=== PATIENT | female | born 1935 | race Caucasian/White ===

== ENCOUNTER 2018-01-27 11:01 | Emergency (ER) | payer OTHER ==
[~2018-01-27] VITALS: Ht 162.6 cm; Wt 52.3 kg
[2018-01-27 12:06] LABS: BASOPHIL (%) 0.3 % (0-1); EOSINOPHIL (%) 0.1 % (0-5); HEMOGLOBIN 14.1 G/DL (11.9-15.5); IMMATURE GRANULOCYTE (%) 0.3 % (0.0-0.7); LYMPHOCYTE (%) 11.8 % (15-42); LYMPHOCYTE COUNT 0.8 K/uL (1.0-2.8); MCH 30.7 PG (29.0-34.0); MCHC 35.3 G/DL (30.0-36.0); MONOCYTE (%) 6.3 % (3-12); MONOCYTE COUNT 0.5 K/uL (0-0.8); NEUTROPHIL (%) 81.2 % (45-76); NEUTROPHIL COUNT 5.8 K/uL (1.8-6.4); PLATELET COUNT 304 K/uL (156-360); RBC DIS.WIDTH-CV 13.2 % (11.8-14.6); RBC DIS.WIDTH-SD 41.1 % (39-53); WHITE BLOOD COUNT 7.1 K/uL (4.1-10.2)
[2018-01-27 12:14] LABS: CHLORIDE 102 mEq/L (99-109); POTASSIUM 3.1 mEq/L (3.7-5.4); SODIUM 141 mEq/L (136-147)
[2018-01-27 12:16] LABS: GLUCOSE 110 mg/dL (70-99)
[2018-01-27 12:20] LABS: CREATININE 0.6 mg/dL (0.6-1.3); GFR ESTIMATE (CALCULATED) > 59 mL/min/; UREA NITROGEN (BUN) 10 mg/dL (9-23)
[2018-01-27 15:41] VITALS: BP 144/110
== END 2018-01-27 15:43 | disposition home or self-care (01) ==
LOC: EME 11:01
PROVIDERS: Emergency Medicine
DX: R53.1 Weakness (principal); E87.6 Hypokalemia; R42 Dizziness and giddiness; R63.4 Abnormal weight loss; Z68.1 Body mass index [BMI] 19.9 or less, adult; R29.6 Repeated falls; Z91.81 History of falling
CPT/HCPCS: 71045; 80048; 81003; 85025; 93005; 99281; 99285; J7030

== ENCOUNTER 2018-03-05 21:03 | Inpatient (IN) | payer OTHER ==
[~2018-03-05] VITALS: Ht 170.2 cm; Wt 56.6 kg
[~2018-03-05 21:03] MED LIST: CARAFATE1 GM PO; DECADRON4 M1 PO; KLOR-CON 1010 ME1 PO; NYSTATIN100000 UN1 PO; OMEPRAZOLE40 M1 PO; PRINIVIL20 MG PO; ZUPLENZ4 MG PO
[2018-03-06 13:23] VITALS: BP 132/81
[2018-03-06 22:01] VITALS: BP 149/87
[2018-03-06 23:00] VITALS: BP 126/79
[2018-03-07] VITALS (17 sets, daily range): BP systolic 91–153; BP diastolic 52–90
[2018-03-07] MEDS ORDERED: CARAFATE1 GM PO (11:21)
[2018-03-07] MEDS ORDERED: ZOFRAN4 MG PO (11:23)
[2018-03-07] MEDS ORDERED: CALCIUM + D SO1 EACH PO (11:24)
[2018-03-08 00:16] VITALS: BP 156/85
[2018-03-08 03:28] VITALS: BP 162/82
[2018-03-08 07:59] VITALS: BP 168/102
[2018-03-08 11:00] VITALS: BP 136/81
[2018-03-08 15:18] LABS: HEMATOCRIT 39.7 % (36.0-46.0); HEMOGLOBIN 13.7 G/DL (11.9-15.5); MCV 91.7 FL (83-99)
[2018-03-08 16:43] VITALS: BP 133/77
[2018-03-08 17:40] LABS: BASOPHIL (%) 0.2 % (0-1); BASOPHIL COUNT 0.1 K/uL (0-0.1); EOSINOPHIL (%) 0 % (0-5); HEMATOCRIT 40.6 % (36.0-46.0); HEMOGLOBIN 13.9 G/DL (11.9-15.5); IMMATURE GRANULOCYTE (%) 0.7 % (0.0-0.7); LYMPHOCYTE (%) 2.3 % (15-42); LYMPHOCYTE COUNT 0.6 K/uL (1.0-2.8); MCH 31.4 PG (29.0-34.0); MCHC 34.2 G/DL (30.0-36.0); MCV 91.6 FL (83-99); MONOCYTE (%) 2.8 % (3-12); MONOCYTE COUNT 0.7 K/uL (0-0.8); NEUTROPHIL COUNT 23.1 K/uL (1.8-6.4); PLATELET COUNT 241 K/uL (156-360); RBC DIS.WIDTH-CV 15.7 % (11.8-14.6); RBC DIS.WIDTH-SD 52.5 % (39-53); RED BLOOD COUNT 4.43 M/uL (3.80-5.20); WHITE BLOOD COUNT 24.5 K/uL (4.1-10.2)
[2018-03-08 18:05] LABS: ALBUMIN 3.5 G/DL (3.2-4.8); ALKALINE PHOSPHATASE 110 IU/L (3-129); ALT (GPT) 13 IU/L (3-49); AST (GOT) 15 IU/L (2-34); CHLORIDE 106 MEQ/L (99-109); CREATININE 0.6 MG/DL (0.6-1.3); GFR ESTIMATE (CALCULATED) > 59 mL/min/; GLUCOSE 244 mg/dL (70-99); SODIUM 136 MEQ/L (136-147); TOTAL BILIRUBIN 1.3 MG/DL (0.0-1.0); UREA NITROGEN (BUN) 29 mg/dL (9-23)
[2018-03-08 20:03] VITALS: BP 146/78
[2018-03-09] VITALS (7 sets, daily range): BP systolic 123–154; BP diastolic 65–91
[2018-03-09 06:01] LABS: BASOPHIL (%) 0.1 % (0-1); EOSINOPHIL (%) 0 % (0-5); HEMATOCRIT 36.7 % (36.0-46.0); HEMOGLOBIN 12.3 G/DL (11.9-15.5); IMMATURE GRANULOCYTE (%) 0.6 % (0.0-0.7); LYMPHOCYTE (%) 3.9 % (15-42); LYMPHOCYTE COUNT 0.6 K/uL (1.0-2.8); MCH 31.5 PG (29.0-34.0); MCHC 33.5 G/DL (30.0-36.0); MCV 94.1 FL (83-99); MONOCYTE (%) 1.7 % (3-12); MONOCYTE COUNT 0.3 K/uL (0-0.8); NEUTROPHIL (%) 93.7 % (45-76); NEUTROPHIL COUNT 15.1 K/uL (1.8-6.4); PLATELET COUNT 176 K/uL (156-360); RBC DIS.WIDTH-CV 15.9 % (11.8-14.6); RBC DIS.WIDTH-SD 54.8 % (39-53); WHITE BLOOD COUNT 16.1 K/uL (4.1-10.2)
[2018-03-09 06:22] LABS: CHLORIDE 110 MEQ/L (99-109); CREATININE 0.6 MG/DL (0.6-1.3); GFR ESTIMATE (CALCULATED) > 59 mL/min/; GLUCOSE 147 mg/dL (70-99); UREA NITROGEN (BUN) 25 mg/dL (9-23)
[2018-03-09 06:26] LABS: POTASSIUM 4.9 MEQ/L (3.7-5.4); SODIUM 143 MEQ/L (136-147)
[2018-03-09 16:09] LABS: APPEARANCE CLEAR ((CLEAR)); BILIRUBIN NEGATIVE; BLOOD NEGATIVE; COLOR YELLOW ((YELLOW)); GLUCOSE (STRIP) NEGATIVE; KETONES NEGATIVE; LEUKOCYTES NEGATIVE; NITRITE NEGATIVE; PROTEIN (STRIP) NEGATIVE; SPECIFIC GRAVITY 1.016 (1.000-1.030); UCUL ADDED? NO; UROBILINOGEN 0.2 MG/DL (0.2-1.0)
[2018-03-10 03:45] VITALS: BP 158/88
[2018-03-10 06:50] LABS: HEMATOCRIT 36.6 % (36.0-46.0); HEMOGLOBIN 12.3 G/DL (11.9-15.5); MCH 31.1 PG (29.0-34.0); MCHC 33.6 G/DL (30.0-36.0); MCV 92.7 FL (83-99); PLATELET COUNT 193 K/uL (156-360); RBC DIS.WIDTH-CV 15.5 % (11.8-14.6); RBC DIS.WIDTH-SD 52.9 % (39-53); RED BLOOD COUNT 3.95 M/uL (3.80-5.20); WHITE BLOOD COUNT 16.3 K/uL (4.1-10.2)
[2018-03-10 07:18] LABS: CHLORIDE 108 MEQ/L (99-109); CREATININE 0.6 MG/DL (0.6-1.3); GFR ESTIMATE (CALCULATED) > 59 mL/min/; GLUCOSE 143 mg/dL (70-99); POTASSIUM 3.6 MEQ/L (3.7-5.4); SODIUM 141 MEQ/L (136-147); UREA NITROGEN (BUN) 35 mg/dL (9-23)
[2018-03-10 07:30] VITALS: BP 139/81
[2018-03-10 11:29] VITALS: BP 137/84
[2018-03-10 15:28] VITALS: BP 143/77
[2018-03-10 19:17] VITALS: BP 137/75
[2018-03-10 23:14] VITALS: BP 156/80
[2018-03-11 03:36] VITALS: BP 160/84
[2018-03-11 06:44] LABS: BASOPHIL (%) 0.2 % (0-1); EOSINOPHIL (%) 0 % (0-5); HEMATOCRIT 40.7 % (36.0-46.0); HEMOGLOBIN 13.9 G/DL (11.9-15.5); IMMATURE GRANULOCYTE (%) 0.9 % (0.0-0.7); LYMPHOCYTE (%) 4.6 % (15-42); LYMPHOCYTE COUNT 0.8 K/uL (1.0-2.8); MCH 31.3 PG (29.0-34.0); MCHC 34.2 G/DL (30.0-36.0); MCV 91.7 FL (83-99); MONOCYTE (%) 4.6 % (3-12); MONOCYTE COUNT 0.8 K/uL (0-0.8); NEUTROPHIL (%) 89.7 % (45-76); NEUTROPHIL COUNT 15.6 K/uL (1.8-6.4); PLATELET COUNT 230 K/uL (156-360); RBC DIS.WIDTH-CV 15.5 % (11.8-14.6); RBC DIS.WIDTH-SD 52.1 % (39-53); RED BLOOD COUNT 4.44 M/uL (3.80-5.20); WHITE BLOOD COUNT 17.4 K/uL (4.1-10.2)
[2018-03-11 07:05] LABS: ALBUMIN 3.3 G/DL (3.2-4.8); ALKALINE PHOSPHATASE 93 IU/L (3-129); ALT (GPT) 16 IU/L (3-49); AST (GOT) 14 IU/L (2-34); CHLORIDE 108 MEQ/L (99-109); CREATININE 0.5 MG/DL (0.6-1.3); GFR ESTIMATE (CALCULATED) > 59 mL/min/; GLUCOSE 132 mg/dL (70-99); POTASSIUM 3.9 MEQ/L (3.7-5.4); SODIUM 140 MEQ/L (136-147); TOTAL PROTEIN 5.3 G/DL (6.4-8.3); UREA NITROGEN (BUN) 37 mg/dL (9-23)
[2018-03-11 07:07] LABS: TOTAL BILIRUBIN 0.7 MG/DL (0.0-1.0)
[2018-03-11 07:51] VITALS: BP 134/76
[2018-03-11 11:08] VITALS: BP 128/68
[2018-03-11 16:22] VITALS: BP 125/67
[2018-03-11 19:25] VITALS: BP 144/73
[2018-03-11 23:19] VITALS: BP 158/82
[2018-03-12 03:36] VITALS: BP 145/69
[2018-03-12 08:26] VITALS: BP 170/97
[2018-03-12] MEDS ORDERED: HYDROCODON-ACE1 EAC7 PO (08:28)
[2018-03-12] MEDS ORDERED: MEDROL DOSEPAK4 MG PO (08:28)
[2018-03-12 10:42] VITALS: BP 136/76
[2018-03-12] MEDS ORDERED: LOPRESSOR25 MG PO (10:51)
== END 2018-03-12 12:16 | DRG 25 ==
LOC: ENRESERV 21:03 → 4WEST 03-06 12:51 → 2SOUTH 03-06 12:51 → 3EAST 03-06 12:51 → 2SOUTH 03-06 15:07 → ENRESERVTM 03-06 18:59 → ENRESERV 03-06 18:59 → ENRESERVDT 03-06 18:59 → 4WEST 03-06 22:05 → ENRESERV 03-07 10:36 → 3EAST 03-07 13:07
PROVIDERS: Hospitalist; Internal Medicine; Neurological Surgery
DX: C71.6 Malignant neoplasm of cerebellum (principal); G93.5 Compression of brain; I97.3 Postprocedural hypertension; E87.2 Acidosis; R00.0 Tachycardia, unspecified; E87.6 Hypokalemia; K21.9 Gastro-esophageal reflux disease without esophagitis; Y83.8 Other surgical procedures as the cause of abnormal reaction of the patient, or of later complication, without mention of misadventure at the time of the procedure; Y92.238 Other place in hospital as the place of occurrence of the external cause; F03.90 Unspecified dementia, unspecified severity, without behavioral disturbance, psychotic disturbance, mood disturbance, and anxiety
CPT/HCPCS: 70450; 71045; 80048; 80053; 81003; 82308 90; 83605; 83735; 85014; 85018; 85025; 85027; 86850; 86900; 86901; 87641; 88307; 88341 TC; 88342 TC; 93005; 94760; 94799; C1713; J0131; J0330; J0690; J1100; J1170; J2710; J3010; J3480; J7030; J7120; J7643; J8540; Q0175

== ENCOUNTER 2018-03-26 14:36 | Inpatient (IN) | payer OTHER ==
[~2018-03-26] VITALS: Ht 167.6 cm; Wt 59.7 kg
[~2018-03-26 14:36] MED LIST changes: +CALCIUM + D SO1 EACH PO; +HYDROCODON-ACE1 EAC7 PO; -KLOR-CON 1010 ME1 PO; +KLOR-CON M2020 MEQ PO; +LOPRESSOR25 MG PO; +MEDROL DOSEPAK4 MG PO; +ZOFRAN4 MG PO
[2018-03-26 15:33] LABS: HEMATOCRIT 36.4 % (36.0-46.0); MCH 32.3 PG (29.0-34.0); MCHC 35.7 G/DL (30.0-36.0); MCV 90.3 FL (83-99); PLATELET COUNT 248 K/uL (156-360); RBC DIS.WIDTH-CV 13.9 % (11.8-14.6); RBC DIS.WIDTH-SD 46.3 % (39-53); RED BLOOD COUNT 4.03 M/uL (3.80-5.20); WHITE BLOOD COUNT 10.5 K/uL (4.1-10.2)
[2018-03-26 15:43] LABS: CHLORIDE 97 mEq/L (99-109); POTASSIUM 3.3 mEq/L (3.7-5.4); SODIUM 138 mEq/L (136-147)
[2018-03-26 15:46] LABS: GLUCOSE 104 mg/dL (70-99)
[2018-03-26 15:48] LABS: CREATININE 0.6 mg/dL (0.6-1.3); GFR ESTIMATE (CALCULATED) > 59 mL/min/
[2018-03-26 15:49] LABS: UREA NITROGEN (BUN) 12 mg/dL (9-23)
[2018-03-26 15:55] LABS: TROP-I INTERPRETATION NEGATIVE; TROPONIN-I < 0.01 ng/mL (0.0-0.30)
[2018-03-26 16:03] LABS: APPEARANCE CLEAR ((CLEAR)); BILIRUBIN NEGATIVE; BLOOD NEGATIVE; COLOR STRAW ((YELLOW)); GLUCOSE (STRIP) NEGATIVE; KETONES NEGATIVE; LEUKOCYTES NEGATIVE; NITRITE NEGATIVE; PROTEIN (STRIP) NEGATIVE; SPECIFIC GRAVITY 1.008 (1.000-1.030); UCUL ADDED? NO; UROBILINOGEN 0.2 MG/DL (0.2-1.0)
[2018-03-26] MEDS ORDERED: LOPRESSOR25 MG PO (16:18)
[2018-03-26] MEDS ORDERED: LASIX20 MG PO (16:18)
[2018-03-26] MEDS ORDERED: PHENADOZ25 MG PR (16:20)
[2018-03-26] MEDS ORDERED: CEFTIN500 MG PO (16:21)
[2018-03-26] MEDS ORDERED: ENULOSE10 GM/15 M PO (16:21)
[2018-03-26] MEDS ORDERED: ZOFRAN4 MG PO (16:24)
[2018-03-26] MEDS ORDERED: TYLENOL REGULA325 MG PO (16:25)
[2018-03-26 20:23] VITALS: BP 116/67
[2018-03-27 00:11] VITALS: BP 116/62
[2018-03-27 03:43] VITALS: BP 105/55
[2018-03-27 07:39] VITALS: BP 106/67
[2018-03-27 11:59] VITALS: BP 95/56
[2018-03-27 15:59] VITALS: BP 103/65
[2018-03-27 20:15] VITALS: BP 115/64
[2018-03-28 00:31] VITALS: BP 108/60
[2018-03-28 04:32] VITALS: BP 112/64
[2018-03-28 08:20] VITALS: BP 111/69
[2018-03-28 11:27] VITALS: BP 100/60
[2018-03-28 15:31] VITALS: BP 120/69
[2018-03-28 19:46] VITALS: BP 108/80
[2018-03-29 00:19] VITALS: BP 104/72
[2018-03-29 04:30] VITALS: BP 110/78
[2018-03-29 08:16] VITALS: BP 132/88
[2018-03-29 11:49] VITALS: BP 128/67
[2018-03-29 16:16] VITALS: BP 126/70
[2018-03-29 20:49] VITALS: BP 119/70
[2018-03-30] VITALS (7 sets, daily range): BP systolic 122–135; BP diastolic 69–79
[2018-03-30 11:33] LABS: CHLORIDE 103 MEQ/L (99-109); CREATININE 0.4 MG/DL (0.6-1.3); GFR ESTIMATE (CALCULATED) > 59 mL/min/; GLUCOSE 175 mg/dL (70-99); SODIUM 143 MEQ/L (136-147)
[2018-03-30 11:34] LABS: POTASSIUM 4.1 MEQ/L (3.7-5.4); UREA NITROGEN (BUN) 26 mg/dL (9-23)
[2018-03-31 05:11] VITALS: BP 129/64
[2018-03-31 07:04] VITALS: BP 148/72
[2018-03-31 11:07] VITALS: BP 129/71
[2018-03-31] MEDS ORDERED: LISINOPRIL5 MG PO (15:12)
[2018-03-31] MEDS ORDERED: TYLENOL REGULA325 MG PO (15:12)
[2018-03-31] MEDS ORDERED: OMEPRAZOLE20 MG PO (15:12)
[2018-03-31] MEDS ORDERED: LOPRESSOR25 MG PO (15:12)
[2018-03-31] MEDS ORDERED: DEXAMETHASONE4 MG PO (15:12)
[2018-03-31] MEDS ORDERED: METFORMIN HCL500 MG PO (15:12)
[2018-03-31] MEDS ORDERED: SEROQUEL12.5 MG PO (15:14)
[2018-03-31] MEDS ORDERED: ZOFRAN4 MG PO (15:14)
[2018-03-31 15:26] VITALS: BP 121/66
== END 2018-03-31 17:07 | disposition home or self-care (01) | DRG 55 ==
LOC: EME 14:36 → EDOF 17:25 → 2EAST 17:25 → ENRESERV 17:37 → 2EAST 19:32
PROVIDERS: Emergency Medicine; Internal Medicine
DX: C71.6 Malignant neoplasm of cerebellum (principal); E11.65 Type 2 diabetes mellitus with hyperglycemia; R26.0 Ataxic gait; F03.90 Unspecified dementia, unspecified severity, without behavioral disturbance, psychotic disturbance, mood disturbance, and anxiety; I10 Essential (primary) hypertension; Z98.890 Other specified postprocedural states; K21.9 Gastro-esophageal reflux disease without esophagitis; Z79.4 Long term (current) use of insulin; R53.1 Weakness; R41.82 Altered mental status, unspecified; G91.9 Hydrocephalus, unspecified; G89.18 Other acute postprocedural pain
CPT/HCPCS: 36415; 70450; 70553; 71046; 72131; 74176; 80048; 80048 91; 81003; 82948; 83880; 84484; 85027; 87086; 99281; 99285; J1100; J1815; J7030; J8540

== ENCOUNTER 2018-04-05 19:50 | Inpatient (IN) | payer OTHER ==
[~2018-04-05] VITALS: Ht 172.7 cm; Wt 68.0 kg
[~2018-04-05 19:50] MED LIST changes: +CEFTIN500 MG PO; +DEXAMETHASONE4 MG PO; +ENULOSE10 GM/15 M PO; +LASIX20 MG PO; +LISINOPRIL5 MG PO; +METFORMIN HCL500 MG PO; +OMEPRAZOLE20 MG PO; +PHENADOZ25 MG PR; +SEROQUEL12.5 MG PO; +TYLENOL REGULA325 MG PO
[2018-04-05 21:05] LABS: BASOPHIL (%) 0.3 % (0-1); BASOPHIL COUNT 0.1 K/uL (0-0.1); EOSINOPHIL (%) 0 % (0-5); HEMATOCRIT 37.7 % (36.0-46.0); HEMOGLOBIN 13.3 G/DL (11.9-15.5); IMMATURE GRANULOCYTE (%) 2.9 % (0.0-0.7); LYMPHOCYTE COUNT 0.9 K/uL (1.0-2.8); MCH 31.5 PG (29.0-34.0); MCHC 35.3 G/DL (30.0-36.0); MCV 89.3 FL (83-99); MONOCYTE (%) 3.3 % (3-12); MONOCYTE COUNT 0.7 K/uL (0-0.8); NEUTROPHIL (%) 89.5 % (45-76); NEUTROPHIL COUNT 19.7 K/uL (1.8-6.4); PLATELET COUNT 211 K/uL (156-360); RBC DIS.WIDTH-CV 14.6 % (11.8-14.6); RBC DIS.WIDTH-SD 47.7 % (39-53); RED BLOOD COUNT 4.22 M/uL (3.80-5.20)
[2018-04-05 21:13] LABS: CHLORIDE 101 mEq/L (99-109); SODIUM 142 mEq/L (136-147)
[2018-04-05 21:15] LABS: GLUCOSE 213 mg/dL (70-99); PTT 20.3 SEC (25-37)
[2018-04-05 21:18] LABS: CREATININE 0.5 mg/dL (0.6-1.3); GFR ESTIMATE (CALCULATED) > 59 mL/min/
[2018-04-05 21:19] LABS: UREA NITROGEN (BUN) 22 mg/dL (9-23)
[2018-04-05 21:21] LABS: APPEARANCE CLOUDY ((CLEAR)); BILIRUBIN NEGATIVE; BLOOD SMALL; COLOR YELLOW ((YELLOW)); GLUCOSE (STRIP) NEGATIVE; KETONES NEGATIVE; LEUKOCYTES MODERATE; NITRITE NEGATIVE; POTASSIUM 3.1 mEq/L (3.7-5.4); PROTEIN (STRIP) NEGATIVE; SPECIFIC GRAVITY 1.017 (1.000-1.030); UROBILINOGEN 0.2 MG/DL (0.2-1.0)
[2018-04-05 21:32] LABS: BACTERIA 4+ /HPF; EPITHELIAL CELLS 1+ /HPF; MUCUS NONE SEEN /LPF; UCUL ADDED? YES; WHITE BLOOD CELLS 20-30 /HPF (0-5)
[2018-04-05] MEDS ORDERED: FUROSEMIDE20 MG PO (22:49)
[2018-04-05] MEDS ORDERED: ONDANSETRON HCL4 MG PO (22:50)
[2018-04-05] MEDS ORDERED: OMEPRAZOLE40 M1 PO (22:51)
[2018-04-05] MEDS ORDERED: LISINOPRIL20 MG PO (22:51)
[2018-04-06 00:50] VITALS: BP 142/70
[2018-04-06 07:00] VITALS: BP 169/74
[2018-04-06 07:41] LABS: THYROTROPIN (TSH) 0.32 MIU/L (0.4-5.5)
[2018-04-06 07:51] LABS: FOLIC ACID (FOLATE) 6.5 NG/ML (5.0-22.0)
[2018-04-06 08:16] LABS: HEMATOCRIT 34.6 % (36.0-46.0); HEMOGLOBIN 12.1 G/DL (11.9-15.5); MCH 31.7 PG (29.0-34.0); MCV 90.6 FL (83-99); PLATELET COUNT 197 K/uL (156-360); RBC DIS.WIDTH-CV 14.7 % (11.8-14.6); RBC DIS.WIDTH-SD 48.6 % (39-53); RED BLOOD COUNT 3.82 M/uL (3.80-5.20); WHITE BLOOD COUNT 15.7 K/uL (4.1-10.2)
[2018-04-06 12:18] LABS: CHLORIDE 101 MEQ/L (99-109); POTASSIUM 3.6 MEQ/L (3.7-5.4); SODIUM 143 MEQ/L (136-147)
[2018-04-06 12:24] LABS: CREATININE 0.3 MG/DL (0.6-1.3); GFR ESTIMATE (CALCULATED) > 59 mL/min/; GLUCOSE 200 mg/dL (70-99); UREA NITROGEN (BUN) 21 mg/dL (9-23)
[2018-04-06 15:45] VITALS: BP 130/61
[2018-04-06 23:09] VITALS: BP 142/72
[2018-04-07 07:03] VITALS: BP 140/67
[2018-04-07 09:24] LABS: HEMATOCRIT 38.9 % (36.0-46.0); HEMOGLOBIN 12.9 G/DL (11.9-15.5); MCH 30.8 PG (29.0-34.0); MCHC 33.2 G/DL (30.0-36.0); MCV 92.8 FL (83-99); PLATELET COUNT 227 K/uL (156-360); RBC DIS.WIDTH-SD 50.8 % (39-53); RED BLOOD COUNT 4.19 M/uL (3.80-5.20); WHITE BLOOD COUNT 15.3 K/uL (4.1-10.2)
[2018-04-07 09:47] LABS: CHLORIDE 100 MEQ/L (99-109); CREATININE 0.5 MG/DL (0.6-1.3); GFR ESTIMATE (CALCULATED) > 59 mL/min/; GLUCOSE 292 mg/dL (70-99); SODIUM 139 MEQ/L (136-147); UREA NITROGEN (BUN) 23 mg/dL (9-23)
[2018-04-07 09:48] LABS: POTASSIUM 4.4 MEQ/L (3.7-5.4)
[2018-04-07 14:07] LABS: C DIFF TOXIN NEGATIVE (NEGATIVE)
[2018-04-07 15:10] VITALS: BP 118/64
[2018-04-08 00:33] VITALS: BP 123/73
[2018-04-08 06:01] LABS: HEMATOCRIT 36.4 % (36.0-46.0); HEMOGLOBIN 12.4 G/DL (11.9-15.5); MCH 31.1 PG (29.0-34.0); MCHC 34.1 G/DL (30.0-36.0); MCV 91.2 FL (83-99); PLATELET COUNT 230 K/uL (156-360); RBC DIS.WIDTH-CV 14.7 % (11.8-14.6); RBC DIS.WIDTH-SD 49.5 % (39-53); RED BLOOD COUNT 3.99 M/uL (3.80-5.20); WHITE BLOOD COUNT 16.8 K/uL (4.1-10.2)
[2018-04-08 06:25] LABS: CHLORIDE 103 MEQ/L (99-109); CREATININE 0.4 MG/DL (0.6-1.3); GFR ESTIMATE (CALCULATED) > 59 mL/min/; GLUCOSE 144 mg/dL (70-99); POTASSIUM 4.1 MEQ/L (3.7-5.4); SODIUM 141 MEQ/L (136-147); UREA NITROGEN (BUN) 26 mg/dL (9-23)
[2018-04-08 07:13] VITALS: BP 168/81
[2018-04-08 15:10] VITALS: BP 148/67
[2018-04-09 00:34] VITALS: BP 119/61
[2018-04-09 05:43] LABS: HEMATOCRIT 34.4 % (36.0-46.0); HEMOGLOBIN 11.5 G/DL (11.9-15.5); MCH 30.7 PG (29.0-34.0); MCHC 33.4 G/DL (30.0-36.0); PLATELET COUNT 203 K/uL (156-360); RBC DIS.WIDTH-SD 50.8 % (39-53); RED BLOOD COUNT 3.74 M/uL (3.80-5.20); WHITE BLOOD COUNT 15.3 K/uL (4.1-10.2)
[2018-04-09 06:15] LABS: CHLORIDE 104 MEQ/L (99-109); CREATININE 0.5 MG/DL (0.6-1.3); GFR ESTIMATE (CALCULATED) > 59 mL/min/; GLUCOSE 204 mg/dL (70-99); POTASSIUM 4.2 MEQ/L (3.7-5.4); SODIUM 143 MEQ/L (136-147); UREA NITROGEN (BUN) 27 mg/dL (9-23)
[2018-04-09 07:33] VITALS: BP 174/76
[2018-04-09 15:30] VITALS: BP 116/64
[2018-04-09 16:28] LABS: ALBUMIN 2.5 G/DL (3.2-4.8)
[2018-04-09 21:30] VITALS: BP 131/68
[2018-04-09 23:15] VITALS: BP 130/71
[2018-04-10 07:58] VITALS: BP 159/75; BP 176/88
[2018-04-10 12:16] LABS: HEMATOCRIT 41.1 % (36.0-46.0); HEMOGLOBIN 13.3 G/DL (11.9-15.5); MCH 31.5 PG (29.0-34.0); MCHC 32.4 G/DL (30.0-36.0); PLATELET COUNT 183 K/uL (156-360); RBC DIS.WIDTH-CV 15.9 % (11.8-14.6); RBC DIS.WIDTH-SD 55.7 % (39-53); RED BLOOD COUNT 4.22 M/uL (3.80-5.20); WHITE BLOOD COUNT 19.6 K/uL (4.1-10.2)
[2018-04-10 12:17] LABS: MCV 97.4 FL (83-99)
[2018-04-10 15:05] VITALS: BP 140/78
[2018-04-10 23:49] VITALS: BP 153/76
[2018-04-11 07:47] VITALS: BP 174/82
[2018-04-11 16:12] VITALS: BP 140/80
[2018-04-12 00:23] VITALS: BP 133/71
[2018-04-12 07:00] VITALS: BP 163/84
[2018-04-12 15:15] VITALS: BP 116/70
[2018-04-13 07:10] VITALS: BP 119/68
[2018-04-13 15:45] VITALS: BP 142/72
[2018-04-13 23:27] VITALS: BP 127/69
[2018-04-14 07:54] VITALS: BP 134/78
[2018-04-14 15:40] VITALS: BP 113/73
[2018-04-14] MEDS ORDERED: INVANZ1 GM IM (16:58)
== END 2018-04-14 18:07 | DRG 698 ==
LOC: EME 19:50 → EDOF 23:05 → 5EAST 23:05 → ENRESERV 23:13 → 5EAST 04-06 00:55
PROVIDERS: Emergency Medicine; Hospitalist; Physician Assistant
DX: T83.518A Infection and inflammatory reaction due to other urinary catheter, initial encounter (principal); A41.51 Sepsis due to Escherichia coli [E. coli]; Y84.6 Urinary catheterization as the cause of abnormal reaction of the patient, or of later complication, without mention of misadventure at the time of the procedure; C71.6 Malignant neoplasm of cerebellum; F05 Delirium due to known physiological condition; I10 Essential (primary) hypertension; E87.6 Hypokalemia; N31.9 Neuromuscular dysfunction of bladder, unspecified; E83.51 Hypocalcemia; R19.7 Diarrhea, unspecified; E11.65 Type 2 diabetes mellitus with hyperglycemia; N12 Tubulo-interstitial nephritis, not specified as acute or chronic; E78.5 Hyperlipidemia, unspecified; Z16.12 Extended spectrum beta lactamase (ESBL) resistance; Z79.84 Long term (current) use of oral hypoglycemic drugs; K21.9 Gastro-esophageal reflux disease without esophagitis
CPT/HCPCS: 70450; 77300; 77301; 77334; 77338; 77385; 80048; 81003; 82040; 82607; 82746; 82948; 83605; 84439; 84443; 85025; 85027; 85610; 85730; 87040; 87077; 87086 GA; 87147; 87186; 87493; 87801; 93970; 97530 GO; 97530 GP; 99281; 99285; J0696; J1335; J1644; J1815; J7050; J8540

== ENCOUNTER 2018-04-21 11:43 | Inpatient (IN) | payer OTHER ==
[~2018-04-21] VITALS: Ht 165.1 cm; Wt 61.8 kg
[~2018-04-21 11:43] MED LIST changes: +FUROSEMIDE20 MG PO; +INVANZ1 GM IM; +LISINOPRIL20 MG PO; +ONDANSETRON HCL4 MG PO
[2018-04-21 12:30] LABS: HEMATOCRIT 40.5 % (36.0-46.0); MCH 31.8 PG (29.0-34.0); MCHC 34.6 G/DL (30.0-36.0); RBC DIS.WIDTH-SD 53.5 % (39-53); WHITE BLOOD COUNT 11.2 K/uL (4.1-10.2)
[2018-04-21 12:37] LABS: CHLORIDE 99 mEq/L (99-109); POTASSIUM 4.1 mEq/L (3.7-5.4); SODIUM 138 mEq/L (136-147)
[2018-04-21 12:39] LABS: GLUCOSE 205 mg/dL (70-99)
[2018-04-21 12:43] LABS: CREATININE 0.6 mg/dL (0.6-1.3); GFR ESTIMATE (CALCULATED) > 59 mL/min/; UREA NITROGEN (BUN) 26 mg/dL (9-23)
[2018-04-21 12:44] LABS: APPEARANCE CLOUDY ((CLEAR)); BILIRUBIN NEGATIVE; BLOOD SMALL; COLOR YELLOW ((YELLOW)); GLUCOSE (STRIP) NEGATIVE; KETONES NEGATIVE; LEUKOCYTES LARGE; NITRITE NEGATIVE; PROTEIN (STRIP) 30; SPECIFIC GRAVITY 1.016 (1.000-1.030)
[2018-04-21 12:59] LABS: PLAT.SUFFICIENCY DECREASED
[2018-04-21 13:09] LABS: PLATELET COUNT 115 K/uL (156-360)
[2018-04-21 13:20] LABS: RED BLOOD CELLS RARE /HPF (0-5); WHITE BLOOD CELLS 20-30 /HPF (0-5)
[2018-04-21 13:21] LABS: BACTERIA RARE /HPF; EPITHELIAL CELLS RARE /HPF; MUCUS NONE SEEN /LPF; UCUL ADDED? YES
[2018-04-21 17:28] VITALS: BP 123/72
[2018-04-21 19:41] VITALS: BP 125/75
[2018-04-21 23:22] VITALS: BP 131/58
[2018-04-22 04:26] VITALS: BP 130/75
[2018-04-22 07:04] LABS: BASOPHIL (%) 0.1 % (0-1); EOSINOPHIL (%) 0.3 % (0-5); HEMATOCRIT 34.7 % (36.0-46.0); IMMATURE GRANULOCYTE (%) 2.2 % (0.0-0.7); LYMPHOCYTE (%) 10.8 % (15-42); LYMPHOCYTE COUNT 0.7 K/uL (1.0-2.8); MCH 31.6 PG (29.0-34.0); MCHC 34.3 G/DL (30.0-36.0); MONOCYTE (%) 2.6 % (3-12); MONOCYTE COUNT 0.2 K/uL (0-0.8); NEUTROPHIL COUNT 5.7 K/uL (1.8-6.4); PLATELET COUNT 83 K/uL (156-360); RBC DIS.WIDTH-SD 54.1 % (39-53); RED BLOOD COUNT 3.77 M/uL (3.80-5.20); WHITE BLOOD COUNT 6.8 K/uL (4.1-10.2)
[2018-04-22 07:21] LABS: CHLORIDE 103 MEQ/L (99-109); CREATININE 0.2 MG/DL (0.6-1.3); GFR ESTIMATE (CALCULATED) > 59 mL/min/; POTASSIUM 3.6 MEQ/L (3.7-5.4); SODIUM 140 MEQ/L (136-147); UREA NITROGEN (BUN) 18 mg/dL (9-23)
[2018-04-22 07:22] LABS: GLUCOSE 103 mg/dL (70-99)
[2018-04-22 07:23] LABS: HEMOGLOBIN 11.9 G/DL (11.9-15.5)
[2018-04-22 08:42] VITALS: BP 174/80
[2018-04-22 10:54] LABS: C DIFF TOXIN NEGATIVE (NEGATIVE)
[2018-04-22 11:48] VITALS: BP 155/76
[2018-04-22] MEDS ORDERED: DECADRON4 M1 PO (12:34)
[2018-04-22 15:50] VITALS: BP 164/89
[2018-04-22 17:37] VITALS: BP 140/90
[2018-04-22 20:20] VITALS: BP 137/80
[2018-04-23 01:25] VITALS: BP 131/73
[2018-04-23 05:37] VITALS: BP 149/79
[2018-04-23 08:30] VITALS: BP 128/84
[2018-04-23] MEDS ORDERED: MELATONIN PO (14:27)
[2018-04-23 15:26] VITALS: BP 118/76
[2018-04-23 20:01] VITALS: BP 134/76
[2018-04-24] VITALS (7 sets, daily range): BP systolic 122–140; BP diastolic 74–90
[2018-04-24 16:52] LABS: BASOPHIL (%) 0.1 % (0-1); EOSINOPHIL (%) 0 % (0-5); HEMOGLOBIN 11.8 G/DL (11.9-15.5); IMMATURE GRANULOCYTE (%) 1.3 % (0.0-0.7); LYMPHOCYTE (%) 4.4 % (15-42); LYMPHOCYTE COUNT 0.3 K/uL (1.0-2.8); MCH 31.3 PG (29.0-34.0); MCHC 33.7 G/DL (30.0-36.0); MCV 92.8 FL (83-99); MONOCYTE (%) 2.3 % (3-12); MONOCYTE COUNT 0.2 K/uL (0-0.8); NEUTROPHIL (%) 91.9 % (45-76); NEUTROPHIL COUNT 7.1 K/uL (1.8-6.4); PLATELET COUNT 86 K/uL (156-360); RBC DIS.WIDTH-CV 15.6 % (11.8-14.6); RED BLOOD COUNT 3.77 M/uL (3.80-5.20); WHITE BLOOD COUNT 7.7 K/uL (4.1-10.2)
[2018-04-24 17:12] LABS: CHLORIDE 103 MEQ/L (99-109); POTASSIUM 2.9 MEQ/L (3.7-5.4); SODIUM 138 MEQ/L (136-147)
[2018-04-24 17:19] LABS: CREATININE 0.3 MG/DL (0.6-1.3); GFR ESTIMATE (CALCULATED) > 59 mL/min/; UREA NITROGEN (BUN) 11 mg/dL (9-23)
[2018-04-24 17:28] LABS: GLUCOSE 188 mg/dL (70-99)
[2018-04-25 03:45] VITALS: BP 127/67
[2018-04-25 09:54] VITALS: BP 138/77
[2018-04-25 18:23] VITALS: BP 119/69
[2018-04-25 19:00] VITALS: BP 124/64
[2018-04-25 20:15] VITALS: BP 101/54
[2018-04-25 22:45] VITALS: BP 118/70
[2018-04-26 04:15] VITALS: BP 111/67
[2018-04-26 06:52] LABS: HEMATOCRIT 33.4 % (36.0-46.0); HEMOGLOBIN 11.1 G/DL (11.9-15.5); MCH 31.2 PG (29.0-34.0); MCHC 33.2 G/DL (30.0-36.0); MCV 93.8 FL (83-99); PLATELET COUNT 80 K/uL (156-360); RBC DIS.WIDTH-CV 15.4 % (11.8-14.6); RBC DIS.WIDTH-SD 53.3 % (39-53); RED BLOOD COUNT 3.56 M/uL (3.80-5.20); WHITE BLOOD COUNT 5.3 K/uL (4.1-10.2)
[2018-04-26 07:38] LABS: CHLORIDE 111 MEQ/L (99-109); CREATININE 0.3 MG/DL (0.6-1.3); GFR ESTIMATE (CALCULATED) > 59 mL/min/; MAGNESIUM 1.7 mg/dl (1.3-2.7); SODIUM 142 MEQ/L (136-147); UREA NITROGEN (BUN) 14 mg/dL (9-23)
[2018-04-26 07:45] LABS: GLUCOSE 92 mg/dL (70-99); POTASSIUM 3.5 MEQ/L (3.7-5.4)
[2018-04-26 09:00] VITALS: BP 124/67
[2018-04-26] MEDS ORDERED: Zeasorb Antifungal T TP (12:31)
[2018-04-26] MEDS ORDERED: METRONIDAZOLE500 MG PO (12:31)
[2018-04-26] MEDS ORDERED: LOPERAMIDE2 MG PO (12:31)
[2018-04-26] MEDS ORDERED: HYOSCYAMINE0.125 MG SL (12:37)
[2018-04-26] MEDS ORDERED: ATIVAN0.5 MG PO (12:37)
[2018-04-26] MEDS ORDERED: MORPHINE CON20 MG/M1 PO (12:37)
[2018-04-26] MEDS ORDERED: MACROBID100 MG PO (12:46)
[2018-04-26 13:16] LABS: HEPATITIS B SURFACE ANTIBODY Nonreactive; HEPATITIS B SURFACE ANTIGEN Nonreactive
[2018-04-26 13:18] LABS: ANTI-HEPATITIS B CORE (IGM) Nonreactive
[2018-04-28 18:10] LABS: HCV RNA (IU/mL) <15 IU/mL (()); HCV RNA (LOG IU/mL) <1.18 (())
== END 2018-04-26 16:10 | disposition hospice, home (50) | DRG 872 ==
LOC: EME 11:43 → 3EAST 15:22 → EDOF 15:22 → CANRESERV 15:24 → ENRESERV 15:24 → 3EAST 17:02 → ENRESERV 04-22 15:53 → 4EAST 04-22 17:25 → ENRESERV 04-24 11:16 → CANRESERV 04-24 11:16 → 4EAST 04-26 16:10
PROVIDERS: Emergency Medicine Emergency Medical Services; Hospitalist; Internal Medicine; Specialist
DX: A41.9 Sepsis, unspecified organism (principal); E87.2 Acidosis; N39.0 Urinary tract infection, site not specified; Z51.5 Encounter for palliative care; Z66 Do not resuscitate; E86.0 Dehydration; C71.6 Malignant neoplasm of cerebellum; D69.6 Thrombocytopenia, unspecified; K52.9 Noninfective gastroenteritis and colitis, unspecified; K83.8 Other specified diseases of biliary tract; F03.90 Unspecified dementia, unspecified severity, without behavioral disturbance, psychotic disturbance, mood disturbance, and anxiety; E11.9 Type 2 diabetes mellitus without complications; I10 Essential (primary) hypertension; Z79.84 Long term (current) use of oral hypoglycemic drugs; Z92.3 Personal history of irradiation; D64.9 Anemia, unspecified
CPT/HCPCS: 70450; 71045; 74018; 74176; 77385; 80048; 81003; 82948; 83605; 83735; 85025; 85027; 86705; 86706; 87040; 87077; 87086; 87177; 87186; 87340; 87493; 87522 90; 99281; 99285; J0744; J1335; J1815; J2270; J3480; J7030; J7040; J7050; J8540; S0030

== ENCOUNTER 2018-05-05 10:13 | Inpatient (IN) | payer OTHER ==
[~2018-05-05] VITALS: Ht 170.2 cm; Wt 62.7 kg
[~2018-05-05 10:13] MED LIST changes: +ATIVAN0.5 MG PO; +HYOSCYAMINE0.125 MG SL; +LOPERAMIDE2 MG PO; +MACROBID100 MG PO; +MELATONIN PO; +METRONIDAZOLE500 MG PO; +MORPHINE CON20 MG/M1 PO; +Zeasorb Antifungal T TP
[2018-05-05 10:35] LABS: APPEARANCE CLOUDY ((CLEAR)); BILIRUBIN NEGATIVE; BLOOD MODERATE; COLOR YELLOW ((YELLOW)); GLUCOSE (STRIP) NEGATIVE; KETONES NEGATIVE; LEUKOCYTES LARGE; NITRITE NEGATIVE; PROTEIN (STRIP) NEGATIVE; SPECIFIC GRAVITY 1.006 (1.000-1.030)
[2018-05-05 10:51] LABS: MCH 32.1 PG (29.0-34.0); MCHC 34.3 G/DL (30.0-36.0); MCV 93.6 FL (83-99); NRBC (%) 0.5 /100 WBC (0-0); RBC DIS.WIDTH-CV 16.7 % (11.8-14.6); RBC DIS.WIDTH-SD 55.9 % (39-53); RED BLOOD COUNT 3.74 M/uL (3.80-5.20); WHITE BLOOD COUNT 14.2 K/uL (4.1-10.2)
[2018-05-05 10:56] LABS: PLATELET COUNT 214 K/uL (156-360)
[2018-05-05 10:56] LABS: WHITE BLOOD CELLS TNTC /HPF (0-5)
[2018-05-05 10:57] LABS: CHLORIDE 97 mEq/L (99-109); POTASSIUM 4.4 mEq/L (3.7-5.4); SODIUM 138 mEq/L (136-147)
[2018-05-05 10:57] LABS: BACTERIA 2+ /HPF; EPITHELIAL CELLS NONE SEEN /HPF; MUCUS RARE /LPF; UCUL ADDED? YES
[2018-05-05 10:58] LABS: GLUCOSE 157 mg/dL (70-99)
[2018-05-05 10:59] LABS: HYALINE CASTS RARE /LPF
[2018-05-05 11:02] LABS: CREATININE 0.4 mg/dL (0.6-1.3); GFR ESTIMATE (CALCULATED) > 59 mL/min/
[2018-05-05 11:03] LABS: UREA NITROGEN (BUN) 16 mg/dL (9-23)
[2018-05-05 11:38] LABS: ABS NEUTROPHIL COUNT 10.6; ANISOCYTOSIS NONE SEEN; EOSINOPHIL ABS CT 0; LYMPHOCYTES 10.6 % (15.0-45.0); MACROCYTES 1+; METAMYELOCYTES 3.5 %; MONOCYTES 7.1 % (0-9.0); MYELOCYTES 4.4 %; NUCLEATED RBC'S 0.9; PLAT.SUFFICIENCY ADEQUATE; POLYCHROMASIA 1+; SEG.NEUTROPHILS 66.4 % (46.0-76.0); SPHEROCYTES 1+
[2018-05-05] MEDS ORDERED: PRILOSEC20 MG PO (12:08)
[2018-05-05] MEDS ORDERED: ZEASORB-AF70 G1 TP (12:09)
[2018-05-05] MEDS ORDERED: TYLENOL REGULA325 MG PO (12:10)
[2018-05-05] MEDS ORDERED: LASIX20 MG PO (12:10)
[2018-05-05] MEDS ORDERED: Z-BUM113 GM TP (12:11)
[2018-05-05 13:31] VITALS: BP 114/71
[2018-05-05 15:00] VITALS: BP 100/58
[2018-05-05 19:39] VITALS: BP 109/71
[2018-05-06 00:13] VITALS: BP 99/58
[2018-05-06 05:53] LABS: HEMATOCRIT 30.7 % (36.0-46.0); HEMOGLOBIN 10.2 G/DL (11.9-15.5); MCH 32.1 PG (29.0-34.0); MCHC 33.2 G/DL (30.0-36.0); MCV 96.5 FL (83-99); NRBC (%) 0.7 /100 WBC (0-0); PLATELET COUNT 180 K/uL (156-360); RBC DIS.WIDTH-CV 16.9 % (11.8-14.6); RBC DIS.WIDTH-SD 59.6 % (39-53); RED BLOOD COUNT 3.18 M/uL (3.80-5.20); WHITE BLOOD COUNT 8.8 K/uL (4.1-10.2)
[2018-05-06 06:18] LABS: ALBUMIN 2.5 G/DL (3.2-4.8); ALKALINE PHOSPHATASE 122 IU/L (3-129); ALT (GPT) 12 IU/L (3-49); AST (GOT) 14 IU/L (2-34); CHLORIDE 100 MEQ/L (99-109); CREATININE 0.3 MG/DL (0.6-1.3); GFR ESTIMATE (CALCULATED) > 59 mL/min/; SODIUM 139 MEQ/L (136-147); TOTAL BILIRUBIN 0.8 MG/DL (0.0-1.0); TOTAL PROTEIN 4.4 G/DL (6.4-8.3); UREA NITROGEN (BUN) 19 mg/dL (9-23)
[2018-05-06 06:21] LABS: GLUCOSE 85 mg/dL (70-99)
[2018-05-06 06:55] VITALS: BP 112/64
[2018-05-06 07:38] LABS: ABS NEUTROPHIL COUNT 7.3; ANISOCYTOSIS 2+; BAND NEUTROPHILS 11.3 % (0-8.0); EOSINOPHIL ABS CT 0; METAMYELOCYTES 6.1 %; MICROCYTOSIS 2+; MONOCYTES 2.6 % (0-9.0); MYELOCYTES 0.9 %; PLAT.SUFFICIENCY ADEQUATE; POLYCHROMASIA 1+; SEG.NEUTROPHILS 72.1 % (46.0-76.0)
[2018-05-06 11:00] VITALS: BP 113/74
[2018-05-06 15:00] VITALS: BP 132/76
[2018-05-06 19:20] VITALS: BP 129/81
[2018-05-06 22:36] VITALS: BP 108/61
[2018-05-07 03:36] VITALS: BP 109/61
[2018-05-07 07:16] VITALS: BP 140/75
[2018-05-07 11:44] VITALS: BP 126/69
[2018-05-07 16:45] VITALS: BP 105/66
[2018-05-07 20:55] VITALS: BP 114/73
[2018-05-08 00:09] VITALS: BP 115/76
[2018-05-08 07:30] VITALS: BP 152/89
[2018-05-08] MEDS ORDERED: MORPHINE CON20 MG/M1 PO (11:32)
[2018-05-08] MEDS ORDERED: INVANZ1 GM IM (11:32)
== END 2018-05-08 14:00 | disposition hospice, home (50) | DRG 872 ==
LOC: EME 10:13 → 5EAST 11:55 → EDOF 11:55 → ENRESERV 11:59 → 5EAST 13:06
PROVIDERS: Emergency Medicine; Hospitalist
DX: A41.9 Sepsis, unspecified organism (principal); N12 Tubulo-interstitial nephritis, not specified as acute or chronic; E11.9 Type 2 diabetes mellitus without complications; K21.9 Gastro-esophageal reflux disease without esophagitis; I10 Essential (primary) hypertension; Z51.5 Encounter for palliative care; B96.20 Unspecified Escherichia coli [E. coli] as the cause of diseases classified elsewhere; Z16.12 Extended spectrum beta lactamase (ESBL) resistance; N31.9 Neuromuscular dysfunction of bladder, unspecified; F41.9 Anxiety disorder, unspecified; Z90.710 Acquired absence of both cervix and uterus; Z85.841 Personal history of malignant neoplasm of brain; Z87.440 Personal history of urinary (tract) infections
CPT/HCPCS: 71045; 76937; 80048; 80053; 81003; 83605; 85025; 87040; 87086; 87493; 93005; 94760; 94799; 99281; 99285; C1751; C1894; J0696; J1335; J1644; J2185; J7030; J7050; J8540